=== PATIENT | male | born 1940 | race Caucasian/White ===

== ENCOUNTER → 2017-01-27 | Outpatient (REF) | payer MEDICARE, BC | LOC: M SMT 17:09 | PROVIDERS: ATTEND Nurse Practitioner Women's Health | DX: R33.9 Retention of urine, unspecified (principal); C61 Malignant neoplasm of prostate | CPT/HCPCS: 51701; 81001; 87086; G0463 ==

== ENCOUNTER → 2017-02-05 | Outpatient (REF) | payer MEDICARE, BC | LOC: M SMT 14:11 | PROVIDERS: ATTEND Nurse Practitioner Women's Health | DX: R33.9 Retention of urine, unspecified (principal) ==

== ENCOUNTER → 2017-02-23 | Outpatient (REF) | payer MEDICARE, BC ==
[2017-03-06 00:06] LABS: Uric Acid 100 % (.)
== END ==
LOC: M SMT 12:52
PROVIDERS: ATTEND Nurse Practitioner Women's Health
DX: N20.0 Calculus of kidney (principal)
CPT/HCPCS: 82360; 87088; 87186; G0463

== ENCOUNTER → 2017-02-23 | Outpatient (REF) | payer MEDICARE | LOC: M LAB REF 09:10 | PROVIDERS: ATTEND Nurse Practitioner Women's Health | DX: N39.0 Urinary tract infection, site not specified (principal) ==

== ENCOUNTER → 2017-02-25 | Outpatient (CLI) | payer MEDICARE ==
--- NOTE | 2017-02-25 08:50 | REP ---
Clinical: Nephrolithiasis. Findings: Lung bases demonstrate minimal scarring. Liver, spleen, pancreas, gallbladder, bilateral adrenal glands and kidneys are relatively normal. Specifically, no perinephric stranding, intrarenal or obstructing ureteral calculi are identified and there is no evidence for hydroureteronephrosis. Bladder includes small dependent calcifications which may reflect passed renal stones. The underlying prostate gland is mildly prominent measuring approximately 4.4 cm transverse diameter with minimal mass effect on the base of the bladder and may warrant evaluation. The enteric system is without obstruction or acute inflammatory process. Sigmoid diverticula noted without acute diverticulitis. Pelvis demonstrates bladder and prostate gland as described above. No pelvic fluid or ascites. No significant adenopathy. No free air. Abdominal aorta demonstrates mild atherosclerotic changes without aneurysm. Musculoskeletal structures demonstrate degenerative changes to the visualized thoracolumbar spine without focal osseous abnormality. Impression: 1. Kidneys without obvious abnormality or stones. Small amount of calcification in the dependent portion of the bladder may reflect passed kidney stones. 2. Mildly prominent prostate gland may warrant evaluation. 3. Sigmoid diverticula without acute diverticulitis. 4. No acute abdominopelvic pathology appreciated. Signed by Mihir Morales MD 02/25/2017 08:42 A
== END ==
LOC: M RAD 07:24
PROVIDERS: ATTEND Nurse Practitioner Women's Health
DX: N20.0 Calculus of kidney (principal); N40.0 Benign prostatic hyperplasia without lower urinary tract symptoms; K57.30 Diverticulosis of large intestine without perforation or abscess without bleeding

== ENCOUNTER → 2018-02-02 | Outpatient (CLI) | payer MEDICARE ==
[2018-02-02 18:40] LABS: PROSTATIC SPECIFIC AG MONITOR 0.23 NG/ML (< 4.0)
== END ==
LOC: M SMT 16:01
DX: C61 Malignant neoplasm of prostate (principal)
CPT/HCPCS: 84153

== ENCOUNTER → 2018-02-18 | Outpatient (CLI) | payer MEDICARE ==
[~2018-02-18] MED LIST: CONRAY-43 43% 50ML VIAL (Q9960) As Ordered; PROHANCE 279.3MG/ML 5ML VIAL (A9576) As Ordered
== END ==
LOC: M RADPRO 06:35
DX: M25.531 Pain in right wrist (principal); S63.511A Sprain of carpal joint of right wrist, initial encounter
CPT/HCPCS: 25246

== ENCOUNTER → 2018-12-22 | Outpatient (REF) | payer MEDICARE ==
[2018-12-22 19:07] LABS: ALT/SGPT 21 U/L (12-78); BASO % 0.6 % (0.0-1.0); BILIRUBIN,TOTAL 0.4 MG/DL (0.2-1.0); BLOOD UREA NITROGEN 22 MG/DL (7-18); CALCIUM LEVEL 9.1 MG/DL (8.8-10.2); CARBON DIOXIDE LEVEL 29 MEQ/L (21-32); CHLORIDE LEVEL 106 MEQ/L (98-107); CHOLESTEROL LEVEL 179 MG/DL (<200); CREATININE FOR GFR 1.18 MG/DL (0.70-1.30); EOS # 0.2 10^3/uL (0.0-0.50); EOS % 3.2 % (0.0-3.0); FREE T4 0.76 NG/DL (0.76-1.46); GLOMERULAR FILTRATION RATE > 60.0 (>42); GLUCOSE, FASTING 84 MG/DL (70-100); HDL CHOLESTEROL 38 MG/DL (>40); HEMATOCRIT 47.9 % (42.0-52.0); HEMOGLOBIN 15.7 g/dl (13.5-17.5); LDL CHOLESTEROL 96 MG/DL (<100); LYMPH # 2.4 10^3/uL (1.5-4.5); LYMPH % 34.5 % (24.0-44.0); MEAN CORPUSCULAR HEMOGLOBIN 30.5 pg (27.0-33.0); MEAN CORPUSCULAR HGB CONC 32.8 g/dl (32.0-36.5); MEAN CORPUSCULAR VOLUME 93.2 fl (80.0-96.0); MONO # 0.9 10^3/uL (0.0-0.8); MONO % 12.8 % (0.0-5.0); NEUTROPHILS # 3.4 10^3/uL (1.8-7.7); NEUTROPHILS % 48.8 % (36.0-66.0); NON-HDL-C 141 MG/DL; PLATELET COUNT, AUTOMATED 193 10^3/uL (150-450); POTASSIUM SERUM 4.6 MEQ/L (3.5-5.1); RED BLOOD COUNT 5.14 10^6/uL (4.30-6.10); SODIUM LEVEL 140 MEQ/L (136-145); TOTAL PROTEIN 7.6 GM/DL (6.4-8.2); TRIGLYCERIDES LEVEL 224 MG/DL (<150); WHITE BLOOD COUNT 6.9 10^3/uL (4.0-10.0)
== END ==
LOC: M SFHCPLAZ 15:58
PROVIDERS: ATTEND Physician Assistant Medical
DX: I10 Essential (primary) hypertension (principal); Z13.220 Encounter for screening for lipoid disorders; Z85.46 Personal history of malignant neoplasm of prostate
CPT/HCPCS: 36415; 80053; 80061; 84439; 84443; 85025; G0103; G0463

== ENCOUNTER → 2019-11-15 | Outpatient (CLI) | payer MEDICARE, BC | LOC: M PLALAB 09:23 | PROVIDERS: ATTEND Nurse Practitioner Women's Health | DX: Z85.46 Personal history of malignant neoplasm of prostate (principal) ==

== ENCOUNTER → 2019-11-29 | Outpatient (REF) | payer MEDICARE, BC ==
[2019-11-29 11:56] LABS: BASO % 0.7 % (0.0-1.0); EOS # 0.3 10^3/uL (0.0-0.5); EOS % 4.6 % (0.0-3.0); HEMATOCRIT 47.6 % (42.0-52.0); HEMOGLOBIN 15.4 g/dl (13.5-17.5); LYMPH % 35.6 % (24.0-44.0); MEAN CORPUSCULAR HEMOGLOBIN 30.5 pg (27.0-33.0); MEAN CORPUSCULAR HGB CONC 32.4 g/dl (32.0-36.5); MEAN CORPUSCULAR VOLUME 94.3 fl (80.0-96.0); MONO # 0.9 10^3/uL (0.0-0.8); MONO % 15.3 % (0.0-5.0); NEUTROPHILS # 2.5 10^3/uL (1.5-8.5); NEUTROPHILS % 43.4 % (36.0-66.0); PLATELET COUNT, AUTOMATED 207 10^3/uL (150-450); RED BLOOD COUNT 5.05 10^6/uL (4.30-6.10); WHITE BLOOD COUNT 5.7 10^3/uL (4.0-10.0)
[2019-11-29 12:50] LABS: ALBUMIN 3.6 GM/DL (3.2-5.2); BILIRUBIN,TOTAL 0.5 MG/DL (0.2-1.0); CALCIUM LEVEL 9.3 MG/DL (8.8-10.2); CHOLESTEROL RISK RATIO 4.523 (<5); CREATININE FOR GFR 1.31 MG/DL (0.70-1.30); FREE T4 1.14 NG/DL (0.76-1.46); GLOMERULAR FILTRATION RATE 56.3 (>42); POTASSIUM SERUM 4.8 MEQ/L (3.5-5.1); THYROID STIMULATING HORMONE 2.21 uIU/ML (0.358-3.740); TOTAL PROTEIN 7.4 GM/DL (6.4-8.2)
== END ==
LOC: M SFHCPLAZ 08:33
PROVIDERS: ATTEND Physician Assistant Medical
DX: I10 Essential (primary) hypertension (principal); N52.9 Male erectile dysfunction, unspecified; Z13.220 Encounter for screening for lipoid disorders
CPT/HCPCS: 36415; 80053; 80061; 84439; 84443; 85025; G0463

== ENCOUNTER → 2022-02-17 | Outpatient (CLI) | payer MEDICARE | LOC: M PLAIMG 14:19 → M PLALAB 14:19 | PROVIDERS: ATTEND Physician Assistant | DX: S80.812A Abrasion, left lower leg, initial encounter (principal); S61.217A Laceration without foreign body of left little finger without damage to nail, initial encounter; X58.XXXA Exposure to other specified factors, initial encounter; Y92.9 Unspecified place or not applicable; L08.9 Local infection of the skin and subcutaneous tissue, unspecified ==

== ENCOUNTER → 2022-02-26 | Outpatient (CLI) | payer MEDICARE | LOC: M SOG 13:49 | PROVIDERS: ATTEND Orthopaedic Surgery Hand Surgery | DX: M79.605 Pain in left leg (principal) ==